=== PATIENT | male | born 1970 | race Caucasian/White ===

== ENCOUNTER → 2017-05-31 | Outpatient (CLI) | payer MEDICAID ==
[2017-05-31 07:49] LABS: Appearance,Urine Clear (Clear); Bilirubin,Urine Negative (Negative); Blood,Urine Negative (Negative); Color,Urine Light Yellow; Glucose,Urine (UA) Negative (Negative); Ketones,Urine Negative (Negative); Leukocyte Esterase,Urine Negative (Negative); Nitrite,Urine Negative (Negative); Protein,Urine Negative (Negative); Specific Gravity,Urine 1.013 (1.001-1.035); Urobilinogen,Urine <2.0 mg/dL (<2.0)
[2017-05-31 07:50] LABS: HCT 46.4 % (39.0-53.0); HGB 15.9 gm/dL (13.0-17.5); MCH 29.6 pg (25.0-35.0); MCHC 34.3 g/dL (31.0-37.0); MCV 86.3 fL (80.0-100.0); Mean Platelet Volume 7.7; Platelet Count 225 k/uL (150-450); RBC 5.38 m/uL (4.30-5.90); RDW 12.7 % (11.5-15.5); WBC 5.1 k/uL (3.8-10.6)
[2017-05-31 08:01] LABS: Albumin 4.4 g/dL (3.5-5.0); Calcium 9.7 mg/dL (8.4-10.2); Potassium 5.2 mmol/L (3.5-5.1); Total Bilirubin 1.3 mg/dL (0.2-1.3); Total Protein 7.3 g/dL (6.3-8.2)
[2017-05-31 08:15] LABS: T4, Free (Free Thyroxine) 0.79 ng/dL (0.78-2.19)
[2017-05-31 13:11] LABS: Hemoglobin A1C 5.6 % (4.0-6.0)
== END | disposition home or self-care (01) ==
LOC: LABWHC1 06:58
PROVIDERS: ATTEND Family Medicine
DX: Z00.00 Encounter for general adult medical examination without abnormal findings (principal)
CPT/HCPCS: 36415; 80053; 80061; 81003; 83036; 84439; 84443; 85027

== ENCOUNTER → 2017-07-16 | Outpatient (CLI) | payer MEDICAID ==
--- NOTE | 2017-07-16 21:33 | MR ---
EXAMINATION TYPE: MR shoulder LT wo con DATE OF EXAM: 07/16/2017 COMPARISON: NONE HISTORY: Pain in left shoulder / Impingement TECHNIQUE: Multiplanar, multisequence imaging of the left shoulder is performed without contrast. FINDINGS: Rotator Cuff: There is partial full-thickness tear of the rotator cuff present in the anterior portio n of the insertion and also a rim rent tear is thought to extend into the substance of the tendon, th e tendon shows abnormal fluid signal and thickening Acromioclavicular Joint: Hypertrophic change of the acromioclavicular joint causes some mass effect o n the musculotendinous junction of supraspinatus, there is fluid signal subacromial subdeltoid bursa, distal acromial spur Glenohumeral Joint: Intact Labrum: Maintained, no evident tear Biceps Tendon: The long head of biceps is in normal location within bicipital groove. Bone marrow signal: No focal abnormal marrow signal is appreciated. Other: No additional significant abnormality is appreciated. IMPRESSION: Partial full-thickness tear the rotator cuff as described, correlate for impingement.
== END | disposition home or self-care (01) ==
LOC: RADMRIMAIN 06:35
PROVIDERS: ATTEND Orthopaedic Surgery Sports Medicine
DX: M75.122 Complete rotator cuff tear or rupture of left shoulder, not specified as traumatic (principal)

== ENCOUNTER → 2017-07-30 | Outpatient (CLI) | payer MEDICAID ==
[2017-07-30 11:58] LABS: HCT 47.1 % (39.0-53.0); HGB 15.9 gm/dL (13.0-17.5); MCH 30.2 pg (25.0-35.0); MCHC 33.8 g/dL (31.0-37.0); MCV 89.2 fL (80.0-100.0); Mean Platelet Volume 7.8; Platelet Count 217 k/uL (150-450); RBC 5.28 m/uL (4.30-5.90); RDW 13.3 % (11.5-15.5); WBC 4.2 k/uL (3.8-10.6)
[2017-07-30 12:04] LABS: Anion Gap 13 mmol/L; Blood Urea Nitrogen 19 mg/dL (9-20); Calcium 9.8 mg/dL (8.4-10.2); Carbon Dioxide 29 mmol/L (22-30); Chloride 104 mmol/L (98-107); Glucose 119 mg/dL (74-99); Potassium 4.8 mmol/L (3.5-5.1); Sodium 146 mmol/L (137-145)
[2017-07-30 12:10] LABS: Partial Thromboplastin Time 23.4 sec (22.0-30.0); Prothrombin Time 10.1 sec (9.0-12.0)
[2017-07-30 15:47] LABS: Appearance,Urine Clear (Clear); Bilirubin,Urine Negative (Negative); Blood,Urine Negative (Negative); Color,Urine Yellow; Glucose,Urine (UA) Negative (Negative); Ketones,Urine Negative (Negative); Leukocyte Esterase,Urine Negative (Negative); Nitrite,Urine Negative (Negative); Protein,Urine Negative (Negative); Specific Gravity,Urine 1.018 (1.001-1.035); Urobilinogen,Urine <2.0 mg/dL (<2.0)
== END | disposition home or self-care (01) ==
LOC: LABWHC1 11:17
PROVIDERS: ATTEND Family Medicine
DX: Z01.812 Encounter for preprocedural laboratory examination (principal)
CPT/HCPCS: 36415; 80048; 81003; 85027; 85610; 85730

== ENCOUNTER 2017-08-08 13:07 | Day surgery (SDC) | payer MEDICAID ==
[2017-08-05 12:34] VITALS: BMI 27.0
[~2017-08-08 13:07] MED LIST: ACETAMINOPHEN TAB 500 MG TAB PO ONE; DEXAMETHASONE SOD PHOSPHATE 10 MG/ML 1 ML VIAL IV ONE; LACTATED RINGERS 1,000 ML IV SCH; MIDAZOLAM 2 MG/2 ML VIAL IV PRN; MORPHINE SULFATE 4 MG/ML SYRINGE IV PRN; ONDANSETRON 4 MG/2 ML VIAL IVP ONE; ceFAZolin IN SWFI 2 GM/20 ML SYRINGE IVP ONE
[2017-08-08] MEDS ORDERED: LIDOCAINE 1% 20 ML VIAL (10MG/ML) FOR IV START INTRADERMA ONE (13:26)
[2017-08-08] MEDS ORDERED: fentaNYL (PF) 50 MCG/ML 2 ML AMP ONE (14:13)
[2017-08-08] MEDS ORDERED: SUCCINYLCHOLINE CHLORIDE 100 MG/5 ML SYR IV ONE (14:13)
[2017-08-08] MEDS ORDERED: MIDAZOLAM 2 MG/2 ML VIAL ONE (14:13)
[2017-08-08] MEDS ORDERED: PROPOFOL 10 MG/ML 20 ML VIAL IV ONE (14:13)
[2017-08-08] MEDS ORDERED: LACTATED RINGERS 1,000 ML IV ONE (15:16)
[2017-08-08 15:41] VITALS: TEMP 96.8
[2017-08-08] MEDS: HYDROmorphone 0.5 MG/0.5 ML SYRINGE IVP PRN ×3 (16:03→16:22)
--- NOTE | 2017-08-08 16:18 | OP ---
OPERATIVE REPORT DATE OF PROCEDURE: 08/08/2017 SURGEON: Vladimir Lazo M.D. STEEL CUTTER: Jamal VIEYRA. PREOPERATIVE DIAGNOSES: 1. Left shoulder rotator cuff tear. 2. Left shoulder superior labral tear. 3. Left shoulder subacromial impingement. POSTOPERATIVE DIAGNOSES: 1. Left shoulder type 2 displaced superior labral tear. 2. Left shoulder bicipital tenosynovitis. 3. Left shoulder type 2 anterolateral acromial spur. PROCEDURE PERFORMED: 1. Left shoulder arthroscopic biceps tenotomy. 2. Left shoulder anterior superior posterior labral debridement. 3. Left shoulder arthroscopic acromioplasty. ANESTHESIA: General endotracheal. ESTIMATED BLOOD LOSS: Minimal. TOURNIQUET: None. DRAINS: None. COMPLICATIONS: None apparent. DISPOSITION: Postanesthesia care unit. EXAMINATION: Examination under anesthesia, left shoulder elevation 160 degrees, external rotation at the side 45 degrees external rotation 90 degrees abduction was to 95 degrees, internal rotation at 90 degrees abduction was 60 degrees, sulcus less than 1 cm, anterior translation glenoid face, posterior translation glenoid face. ARTHROSCOPIC FINDINGS: Left shoulder: 1. Superior labrum type 2 superior labral tear tearing both anterior and posterior to biceps anchor. The biceps anchor was not intact. There is also partial tearing of the extensive tenosynovitis of the intra-articular portion of long head of the biceps tendon. 2. Anterior inferior labrum normal glenoid labral attachment posterior labrum. 3. Tearing of the posterior labrum from the 9 o'clock position up to the 12 o'clock position on the glenoid face. 4. Humeral head cartilage normal. 5. Rotator cuff: Normal subscapularis, supraspinatus and infraspinatus. 6. Glenoid face cartilage is normal. 7. Subacromial space significant fraying of the undersurface of the coracoacromial ligament with type 2 anterolateral acromial spur. INDICATIONS: Mustapha is a 47-year-old male with longstanding left shoulder pain. He has noted to have weakness as well as significant pain in the shoulder. He has been through fairly significant course of nonoperative treatment up to this point. Physical examination and MRI are suggestive of superior labral tear, bicipital tenosynovitis as well as rotator cuff tear. At this point time, he feels as if he has failed nonoperative treatment. I would like to proceed with operative intervention. Long discussion was held with the patient with regard to treatment options. The risks of procedure were all discussed with him in detail. These risks include, but not limited to risk of infection, nerve damage, bleeding, pain, and a small risk of deep vein thrombosis which could lead to fatal pulmonary emboli. Further risks include lack of healing of the rotator cuff and possibility for biceps contour change with a biceps tenotomy. The patient understands the operation as well as the fact that there is no guarantee of improvement of his symptoms. Appropriate informed consent was obtained. DESCRIPTION OF PROCEDURE: The patient was identified in preop holding area. Surgical sites marked by both the patient and myself. He was given 2 g of Ancef IV for prophylactic purposes. He was then transferred to the operative suite, where he was placed supine on the operative table. The patient was then intubated endotracheally and received general anesthesia throughout the operative procedure. Examination under anesthesia was then performed and the findings were noted above. The patient is then placed into the beach chair position well-padded in preparation for surgery. Great care was also taken to ensure that the cervical spine was in neutral alignment well-padded and maintained that way throughout the operative procedure. Great care was also taken to ensure that his legs were appropriately padded as well. The patient's left upper extremity was then prepped and draped in usual sterile fashion. Standard surgical pause undertaken to ensure that appropriate preop antibiotics were given and that we were operating the correct site. All staff in room were in agreement and we proceeded. The acromion as well as the AC joint coracoid marked with a surgical pen. The skin of the anticipated port sites were also marked with a surgical pen. The skin of the anticipated port sites were then injected with 0.25% Marcaine with epinephrine. I then proceeded to make a posterior portal. A 30 degree arthroscope was introduced in the glenohumeral joint through this portal. The arthroscopic pump pressure was set at 44 mmHg and maintained at that level throughout the entire case. Next utilizing an 18-gauge spinal needle topical localized placement, the anterior superior portal was made. This was made just underneath the biceps tendon high in the rotator interval. A small 5.75 mm cannula was then placed and the outflow was then done through this cannula. Diagnostic arthroscopy of the shoulder was then performed. The findings noted above. Great care was taken to probe superior labral complex as well as the biceps anchor. The biceps anchor was not firmly attached. Significant tearing of the superior labrum. This extended both anterior and posterior to the biceps anchor. The intra-articular portion of long head of the biceps tendon did show extensive tenosynovitis as well. At this point, I proceeded with a biceps tenotomy. The biceps was tenotomized at its attachment on the supraglenoid tubercle. This was done utilizing the ArthroCare wand. I then proceeded to debride the torn loose tissue of the superior labrum. This was debrided anteriorly, superiorly, posteriorly, back to stable tissue. I then inspected the rotator cuff from intra-articular. The subscapularis was pristine without any evidence of tearing. The supraspinatus and infraspinatus also showed no evidence of tearing. At this point in time, no further work was deemed necessary from intra-articular. The arthroscope was removed from the glenohumeral joint and utilizing the same posterior skin incision was placed into the subacromial space. Next utilizing an 18-gauge spinal needle to topically localize placement, lateral portal was made under direct visualization. Subacromial bursectomy was then performed utilizing synovial shaver as well as the ArthroCare wand. There was fraying of the undersurface of the coracoacromial ligament. This was then taken down utilizing the ArthroCare wand. This exposed underlying type 2 anterolateral acromial spur. I then proceed with an acromioplasty. Utilizing synovial shaver in a vero-type fashion, the acromioplasty was completed. When the acromioplasty was complete, the arthroscope was placed in the lateral portal and the shaver placed posteriorly to ensure that it was adequate and coplanar with posterior aspect of the acromion. I then placed the arthroscope into the lateral portal. I made a 4th anterolateral portal after first localizing with an 18-gauge spinal needle. This was done to be able to probe the rotator cuff. With the arthroscope in the lateral portal, and taking the shoulder throughout a full range of motion. I was able to thoroughly inspect the bursal surface of the rotator cuff. There was no evidence of tearing at all on the bursal surface of the rotator cuff. In fact, the rotator cuff looked quite pristine with very healthy-looking blood vessels running through its bursal surface. The anterior area of the cuff was probed. It seemed very robust in this area. This was the area that there was concern about on the MRI. Again, there was no evidence of a high-grade partial-thickness tear or even low-grade partial thickness tear in this area. Certainly there was no evidence of a full-thickness tear in this area. At this point, I made a decision not to proceed with any sort of attempted repair of the rotator cuff. The shoulder was then thoroughly irrigated and then drained with an outflow cannula. The arthroscopic equipment was removed from the shoulder. The arthroscopic portals were then closed with 3-0 nylon interrupted suture. Sterile compressive dressings were applied. The patient's left upper extremity was placed in a standard sling. All sponge and needle counts were deemed correct prior to closure. The patient tolerated the procedure well without apparent complication. He was transferred to the recovery room in stable condition. ANTONIETTA / DANIELLE: [id number] /
[2017-08-08] MEDS: MORPHINE SULFATE 4 MG/ML SYRINGE IVP ONE ×2 (16:33→16:40)
[2017-08-08 16:50] VITALS: RESP 18
[2017-08-08] MEDS ORDERED: HYDROcodone/APAP 7.5-325MG 1 EACH TAB PO ONE (17:12)
[2017-08-08 17:38] VITALS: BP 122/85; PULSE 73
--- NOTE | 2017-08-08 19:45 | P.ONQ ---
Anesthesiology Proc Note - PNB - Peripheral Nerve Block Performed Left Interscalene Single Time Out Performed: Yes Procedure Start Time: 13:53 Procedure Stop Time: 13:56 Indication: Acute Post-Operative Pain, Requested by physician Sedation Type: Sedate with meaningful contact maintained Preparation: Sterile Prep Position: Supine Needle Size: 50mm (2") Needle Gauge: 21 Technique: Ultrasound Injectate: 0.5% Ropivacaine (see comment for volume) (ropi .5% 30cc) Blood Aspirated: No Pain Paresthesia on Injection Noted: No Resistance on Injection: Normal Events: Uneventful and Well Tolerated
== END 2017-08-08 18:05 | disposition home or self-care (01) ==
LOC: OR 13:07
PROVIDERS: ATTEND Orthopaedic Surgery Sports Medicine
DX: S43.492A Other sprain of left shoulder joint, initial encounter (principal); S43.432A Superior glenoid labrum lesion of left shoulder, initial encounter; X58.XXXA Exposure to other specified factors, initial encounter; M75.22 Bicipital tendinitis, left shoulder; M25.712 Osteophyte, left shoulder; E03.9 Hypothyroidism, unspecified; G47.30 Sleep apnea, unspecified; E04.1 Nontoxic single thyroid nodule; Z79.1 Long term (current) use of non-steroidal anti-inflammatories (NSAID); Z88.8 Allergy status to other drugs, medicaments and biological substances
CPT/HCPCS: 64415; 29822; 29826; J2250; J2270; J1100; J2405; J3010; J0330; J2704; J1170; J0690

== ENCOUNTER → 2019-03-20 | Outpatient (CLI) | payer MEDICAID ==
[2019-03-20 11:20] LABS: HCT 49.8 % (39.0-53.0); HGB 16.5 gm/dL (13.0-17.5); MCH 30.1 pg (25.0-35.0); MCHC 33.2 g/dL (31.0-37.0); MCV 90.5 fL (80.0-100.0); Mean Platelet Volume 8.5; Platelet Count 214 k/uL (150-450); RDW 13.1 % (11.5-15.5); WBC 5.5 k/uL (3.8-10.6)
[2019-03-20 11:46] LABS: Appearance,Urine Clear (Clear); Bilirubin,Urine Negative (Negative); Blood,Urine Negative (Negative); Color,Urine Yellow; Glucose,Urine (UA) Negative (Negative); Ketones,Urine Negative (Negative); Leukocyte Esterase,Urine Negative (Negative); Nitrite,Urine Negative (Negative); Protein,Urine Negative (Negative); Specific Gravity,Urine 1.024 (1.001-1.035); Urobilinogen,Urine <2.0 mg/dL (<2.0)
[2019-03-20 18:11] LABS: Hemoglobin A1C 5.9 % (4.0-6.0)
[2019-03-20 18:45] LABS: African American GFR (CKD) 80.7 (60.0-200.0); Albumin 4.7 g/dL (3.80-4.90); Albumin/Globulin Ratio 2.14 (1.60-3.17); Anion Gap 9.1 mmol/L (4.00-12.00); BUN/Creat Ratio 19.17 Ratio (12.00-20.00); Calcium 9.6 mg/dL (8.7-10.3); Carbon Dioxide 25.9 mmol/L (21.6-31.8); Chol/HDL Ratio 4.59; Globulin 2.2 g/dL (1.6-3.3); LDL Cholesterol,Calculated 135.6 mg/dL (0.0-131.0); Non-African American GFR(CKD) 69.6 (60.0-200.0); Potassium 4.7 mmol/L (3.5-5.5); Total Bilirubin 1.2 mg/dL (0.3-1.2); Total Protein 6.9 g/dL (6.2-8.2); VLDL Calculation 11.4 mg/dL (5.00-40.00)
[2019-03-20 18:52] LABS: T4, Free (Free Thyroxine) 1.3 ng/dL (0.80-1.80)
== END ==
LOC: LABWHC1 10:41
PROVIDERS: ATTEND Family Medicine
DX: Z00.00 Encounter for general adult medical examination without abnormal findings (principal); D34 Benign neoplasm of thyroid gland
CPT/HCPCS: 36415; 80053; 80061; 81003; 83036; 84153; 84439; 84443; 85027

== ENCOUNTER → 2021-10-20 | Outpatient (CLI) | payer MEDICAID ==
[2021-10-20 11:33] LABS: HCT 45.9 % (39.6-50.0); HGB 14.9 g/dL (13.0-17.0); MCH 29.9 pg (27.0-32.0); MCHC 32.5 g/dL (32.0-37.0); MCV 92.2 fL (80.0-97.0); Mean Platelet Volume 11.6 fL (9.5-12.2); NRBC Per 100 WBC 0 /100 WBCS (0.0-0.0); Platelet Count 223 X 10*3/uL (140-440); RBC 4.98 X 10*6/uL (4.40-5.60); RDW 13.6 % (11.5-14.5)
[2021-10-20 11:46] LABS: ALT 23 U/L (10-49); AST 30 U/L (14-35); African American GFR (CKD) 88.4 (60.0-200.0); Albumin 4.5 g/dL (3.8-4.9); Albumin/Globulin Ratio 1.67 (1.60-3.17); Alkaline Phosphatase 48 U/L (41-126); BUN/Creat Ratio 17.09 Ratio (12.00-20.00); Blood Urea Nitrogen 18.8 mg/dL (9.0-27.0); Calcium 9.4 mg/dL (8.7-10.3); Carbon Dioxide 25.2 mmol/L (20.0-27.5); Chloride 103 mmol/L (96-109); Chol/HDL Ratio 4.26 Ratio; Globulin 2.7 g/dL (1.6-3.3); Glucose 116 mg/dL (70-110); LDL Cholesterol,Calculated 121.9 mg/dL (0.0-131.0); Non-African American GFR(CKD) 76.2 (60.0-200.0); Potassium 4.8 mmol/L (3.5-5.5); Sodium 139 mmol/L (135-145); Total Protein 7.2 g/dL (6.2-8.2)
[2021-10-20 18:32] LABS: Appearance,Urine Clear (Clear); Bilirubin,Urine Negative (Negative); Blood,Urine Negative (Negative); Color,Urine Yellow (Yellow); Ketones,Urine Negative (Negative); Nitrite,Urine Negative (Negative); Specific Gravity,Urine 1.017 (1.001-1.030); Urobilinogen,Urine 0.2 (0.2,1.0)
== END | disposition home or self-care (01) ==
LOC: LABWHC1 08:12
PROVIDERS: ATTEND Family Medicine
DX: Z00.00 Encounter for general adult medical examination without abnormal findings (principal); D34 Benign neoplasm of thyroid gland; R53.83 Other fatigue
CPT/HCPCS: 36415; 80053; 80061; 81003; 82306; 82607; 84153; 84402; 84403; 84439; 84443; 85027

== ENCOUNTER → 2023-01-11 | Outpatient (CLI) | payer MEDICAID ==
[2023-01-11 10:56] LABS: HCT 49.1 % (39.6-50.0); HGB 16.1 g/dL (13.0-17.0); MCH 29.8 pg (27.0-32.0); MCHC 32.8 g/dL (32.0-37.0); MCV 90.8 FL (80.0-97.0); Mean Platelet Volume 11.7 FL (9.5-12.2); NRBC Per 100 WBC 0 X 10*3/uL (0.00-0.01); Platelet Count 186 X 10*3/uL (140-440); RBC 5.41 X 10*6/uL (4.40-5.60); RDW 13.6 % (11.5-14.5); WBC 5.21 X 10*3/uL (4.50-10.00)
[2023-01-11 15:54] LABS: Appearance,Urine Clear (Clear); Bilirubin,Urine Negative (Negative); Blood,Urine Negative (Negative); Color,Urine Yellow (Yellow); Ketones,Urine Negative (Negative); Nitrite,Urine Negative (Negative); PH, Urine 6.5; Specific Gravity,Urine 1.014 (1.001-1.030); Urobilinogen,Urine 0.2 E.U./DL
[2023-01-11 16:21] LABS: Chol/HDL Ratio 5.38 Ratio
[2023-01-11 16:22] LABS: ALT 53 U/L (10-49); AST 30 U/L (14-35); Albumin 4.6 g/dL (3.8-4.9); Albumin/Globulin Ratio 1.84 Ratio (1.60-3.17); Alkaline Phosphatase 54 U/L (41-126); BUN/Creat Ratio 20.27 Ratio (12.00-20.00); Blood Urea Nitrogen 22.3 mg/dL (9.0-27.0); Calcium 9.9 mg/dL (8.7-10.3); Carbon Dioxide 26.4 mmol/L (21.6-31.8); Chloride 105 mmol/L (96-109); Globulin 2.5 g/dL (1.6-3.3); Glucose 109 mg/dL (70-110); Potassium 4.6 mmol/L (3.5-5.5); Sodium 142 mmol/L (135-145); T4, Free (Free Thyroxine) 1.09 ng/dL (0.80-1.80); Total Bilirubin 0.5 mg/dL (0.3-1.2); Total Protein 7.1 g/dL (6.2-8.2)
== END | disposition home or self-care (01) ==
LOC: LABWHC1 06:59
PROVIDERS: ATTEND Family Medicine
DX: Z00.00 Encounter for general adult medical examination without abnormal findings (principal); D34 Benign neoplasm of thyroid gland; R53.83 Other fatigue
CPT/HCPCS: 36415; 80053; 80061; 81003; 82306; 82607; 84153; 84402; 84403; 84439; 84443; 85027

== ENCOUNTER → 2024-05-19 | Outpatient (CLI) | payer MEDICAID ==
[2024-05-19 10:18] LABS: Appearance,Urine Clear (Clear); Bilirubin,Urine Negative (Negative); Blood,Urine Negative (Negative); Color,Urine Yellow (Yellow); Ketones,Urine 15 (Negative); Nitrite,Urine Negative (Negative); Specific Gravity,Urine 1.012 (1.001-1.030); Urobilinogen,Urine 0.2 E.U./DL
[2024-05-19 10:19] LABS: HCT 51.1 % (39.6-50.0); HGB 16.6 g/dL (13.0-17.0); MCH 29.7 pg (27.0-32.0); MCHC 32.5 g/dL (32.0-37.0); MCV 91.4 FL (80.0-97.0); Mean Platelet Volume 12.3 FL (9.5-12.2); NRBC Per 100 WBC 0 X 10*3/uL (0.00-0.01); Platelet Count 166 X 10*3/uL (140-440); RBC 5.59 X 10*6/uL (4.40-5.60); RDW 13.3 % (11.5-14.5)
[2024-05-19 10:49] LABS: ALT 46 U/L (10-49); AST 37 U/L (14-35); Albumin 4.6 g/dL (3.8-4.9); Albumin/Globulin Ratio 1.59 Ratio (1.60-3.17); Alkaline Phosphatase 60 U/L (41-126); Calcium 9.7 mg/dL (8.7-10.3); Carbon Dioxide 26.2 mmol/L (21.6-31.8); Chloride 105 mmol/L (96-109); Chol/HDL Ratio 6.23 Ratio; Globulin 2.9 g/dL (1.6-3.3); Glucose 121 mg/dL (70-110); LDL Cholesterol,Calculated 122.5 mg/dL (0.0-131.0); Potassium 4.3 mmol/L (3.5-5.5); Sodium 141 mmol/L (135-145); T4, Free (Free Thyroxine) 1.13 ng/dL (0.80-1.80); Total Bilirubin 0.4 mg/dL (0.3-1.2); Total Protein 7.5 g/dL (6.2-8.2)
[2024-05-19 10:50] LABS: Prostate Specific Antigen 0.54 ng/mL (0.000-3.500)
== END | disposition home or self-care (01) ==
LOC: LABWHC1 07:19
PROVIDERS: ATTEND Family Medicine
DX: Z00.00 Encounter for general adult medical examination without abnormal findings (principal); D34 Benign neoplasm of thyroid gland
CPT/HCPCS: 36415; 80053; 80061; 81003; 82306; 83036; 84153; 84439; 84443; 85027

== ENCOUNTER → 2024-08-27 | Outpatient (CLI) | payer MEDICAID ==
[2024-08-27 13:09] VITALS: BP 139/89; PULSE 80; RESP 16; TEMP 97.9
--- NOTE | 2024-08-27 13:33 | P.SLEEP ---
History of Present Illness DATE: 08/27/2024 CONSULTATION/NEW PATIENT EVALUATION HISTORY OF PRESENT ILLNESS/SLEEP-WAKE EVALUATION: 54-year-old gentleman had be en evaluated in the sleep center for possible obstructive sleep apnea hypopnea syndrome. Patient has history of obstructive sleep apnea diagnosed many years ago in another institution. He had UPPP and sleep study after that again showed sleep apnea. Patient was on treatment with CPAP but stopped therapy about 6 years ago. SLEEP SCHEDULE: Usually sleep schedule from 10 PM to 6:30 AM on weekdays and until 8 AM on weekend. FALLING ASLEEP: No problems with falling asleep. DURING SLEEP: Patient usually sleeps on the back and side position slightly up and wakes up from sleep up to 3 times with up to 2 episodes of nocturia. No history of hypnogogical hallucinations, sleep paralysis, or cataplexy. DURING THE DAY/WAKE STATE: In the morning patient wake up tired, has difficulties to pay attention. [place] sleepiness scale is 7. Patient does not take naps. PAST MEDICAL HISTORY: Sinus problems, left shoulder problems. PAST SURGICAL HISTORY: UPPP, tonsillectomy adenoidectomy, left shoulder surgery. MEDICATIONS: None. SOCIAL HISTORY: Please see below. FAMILY HISTORY: Please see below. REVIEW OF SYSTEMS: Snoring, multiple awakenings from sleep. No fevers. No double vision. No recent chest pain. No shortness of breath. No abdominal pain. No bleeding episodes. No blood in urine. No seizure episodes. PHYSICAL EXAMINATION: GENERAL: A pleasant patient without any distress. VITAL SIGNS: Please see below, weight 209 pounds, BMI 28.3. HEENT: PERRLA, EOMI. Evaluation of oropharynx showed tongue protrudes midline, status post UPPP, no uvula. NECK: Supple. No JVD. Thyroid is not palpable. 16-1/4 inches in circumference. LUNGS: Clear to percussion and to auscultation. Good air exchange. No wheezing or rhonchi. HEART: S1, S2 regular. No murmurs, gallops or rubs. ABDOMEN: Soft and nontender. Bowel sounds are present. No organomegaly appreciated. EXTREMITIES: No clubbing or cyanosis. SMELTING ENGINEER: Awake, alert, and oriented x3. Cranial nerves 2 to 7 intact. There is no fasciculation or atrophy noted. No focal deficits observed. ASSESSMENT: 1. Loud snoring, multiple awakenings from sleep, history of obstructive sleep apnea. Obstructive sleep apnea hypopnea syndrome. 2. Status post UPPP. 3. Status post tonsillectomy and adenoidectomy. 4. Status post left shoulder surgery. 5 history of sinusitis. PLAN: 1. Home sleep apnea test for evaluation of patient's breathing during sleep. 2. Following plan after reading sleep study. 3. Preferable position during sleep on the side. 4. No driving if patient feels any sleepiness. Patient is aware of civil and criminal liability for unsafe driving. 5. Sleep hygiene with regular sleep time for at least 7.5-8 hours. 6. Watching weight. Thank you very much for referring this patient for consultation. Sincerely, Artemio Johns MD, PhD, FAASM. Diplomat of [employer], Sleep Medicine Board by [employer] Facilities Maintenance Engineer of [facility] [place] cc: Aydin Dunbar DO Past Medical History Past Medical History: Sleep Apnea/CPAP/BIPAP, Thyroid Disorder History of Any Multi-Drug Resistant Organisms: None Reported Past Surgical History: Adenoidectomy, Tonsillectomy Additional Past Surgical History / Comment(s): UPPP, uvulopalatalpharygeoplasty, thyroid biopsy Past Anesthesia/Blood Transfusion Reactions: No Reported Reaction Past Psychological History: No Psychological Hx Reported Smoking Status: Never smoker Past Alcohol Use History: None Reported, Occasional Past Drug Use History: None Reported - Past Family History Mother Family Medical History: Cancer Father Family Medical History: Coronary Artery Disease (CAD), Diabetes Mellitus, Hyperlipidemia, Thyroid Disorder Medications and Allergies Home Medications Medication Instructions Recorded Confirmed Type Ibuprofen 400 mg PO BID 08/05/17 08/05/17 History Acetaminophen/Diphenhydramine 1 tab PO ONETIME PRN 08/08/17 08/08/17 History [Tylenol PM Extra Strength] Docusate [Colace] 100 mg PO BID #60 capsule 08/08/17 Rx Doxycycline Hyclate 100 mg PO BID #10 tab 08/08/17 Rx HYDROcodone/APAP 7.5-325MG [Presto 1 - 2 tab PO Q6HR PRN #60 tab 08/08/17 Rx 7.5-325] Allergies Allergy/AdvReac Type Severity Reaction Status Date / Time No Known Allergies Allergy Verified 08/05/17 12:34 Physical Exam Vitals: Vital Signs Temp Pulse Resp BP Pulse Ox 08/27/24 13:09 97.9 F 80 16 139/89 96 Intake and Output 08/26/24 08/27/24 08/27/24 22:59 06:59 14:59 Other: Weight 94.801 kg Sleep Note - Sleep Data ESS Total: 7 - Sleep Note Sleep Note: Temperature: 97.9 F Pulse Rate: 80 Respiratory Rate: 16 Blood Pressure: 139/89 SpO2: 96 Height: 6 ft Weight: 94.801 kg BMI: Neck Circumference: 16.2
== END ==
LOC: 3 N SLEEP 13:04
PROVIDERS: ATTEND Internal Medicine
DX: G47.33 Obstructive sleep apnea (adult) (pediatric) (principal); Z98.890 Other specified postprocedural states; Z90.89 Acquired absence of other organs; Z87.09 Personal history of other diseases of the respiratory system
CPT/HCPCS: 99211

== ENCOUNTER → 2024-09-04 | Outpatient (CLI) | payer MEDICAID ==
--- NOTE | 2024-09-16 12:30 | P.PCN ---
Description of Procedure: CLINICAL: A home sleep apnea test has been done for confirmation of possible obstructive sleep apnea-hypopnea syndrome. DESCRIPTION OF PROCEDURE: RESULTS: Recording time was 8 hours 22 minutes. Evaluation time was 8 hours 10 minutes. Evaluation time is sufficient for making conclusion about results of the test. Raw data of sleep recording has been reviewed and is adequate. Respiratory channel showed 504 apneas and 66 hypopneas. Apnea-hypopnea index was 69.7 per hour, which included obstructive apnea index 36.1, central apnea index 16.6, mixed apnea index 8.9. Pulse rate in the range between minimum 56, maximum 113, average 73 by computer calculation. Lowest desaturation was 71%. IMPRESSION: 1. Extremely severe obstructive and central sleep apnea hypopnea syndrome. Please see other impressions from consultation. PLAN: 1. The patient should have PAP titration for correction of respiratory abnormallities during sleep. 2. Following plan after reading PAP titration. 3. Watching weight. 4. Sleep hygiene with regular time in bed for at least 8 hours. 5. No driving if feeling any sleepiness. Thank you very much for allowing me to participate in the management of your patient. Sincerely, Artemio Johns MD, PhD, FAASM Diplomat of [employer] Sleep Medicine Board of [employer] Rail Car Painter/Sandblaster of [facility] [place] cc: Aydin Dunbar DO
== END ==
LOC: 3 N SLEEP 13:00
PROVIDERS: ATTEND Internal Medicine
DX: G47.33 Obstructive sleep apnea (adult) (pediatric) (principal)

== ENCOUNTER 2024-09-24 19:16 | Outpatient (CLI) | payer MEDICAID ==
--- NOTE | 2024-09-25 18:30 | P.PCN ---
Description of Procedure: CLINICAL: Titration with positive air pressure has been done for correction of respiratory abnormalities during sleep. DESCRIPTION OF PROCEDURE: The standard montage for clinical polysomnography included the electroencephalogram, the electrocardiogram, the mentalis surface electromyography and Lead II cardiography. The respiratory battery consisted of measurements of nasal /buccal air flow, pressure transducer measurements from the nose, thoracic and /or abdominal effort and intercostal surface electromyography. Video monitoring has been done to check for any parasomnia events. Nocturnal oxyhemoglobin saturations were obtained by finger oximetry. Step-conteh titration with positive airway pressure was utilized to control respiratory events. Raw data of sleep recording has been reviewed and is adequate. RESULTS: Sleep efficiency was close to normal 86.2%. Latency to sleep onset was significantly prolonged to 50.0 minutes.]. Sleep architecture showed stage N1 was normal 6.2%, Delta sleep was absent 0%, REM sleep was slightly short 16.6%. Heart rate was minimum 70 BPM, maximum 81 BPM, average 75 BPM. EMG showed 0 periodic limb movements per hour. PAP titration have been done with CPAP up to the pressure 15 cm H2O. Patient had problems with CPAP, switched to BPAP. BPAP titrated up to 23/19 cm H2O. The best results were at the pressure 21/17 cm H2O. Apnea hypopnea index reduced to 1.7.. IMPRESSION: 1. Obstructive sleep apnea hypopnea syndrome mostly on controle with PAP treatment. 2. No significant periodic limb movements have been documented. Please see other impressions from consultation. PLAN: 1. The patient will have treatment with positive air pressure equipment with AutoBPAP with maximal inspiratory pressure 23 and minimal expiratory pressure 10 cm H2O and should use it every night for the whole night. 2. Watching weight. 3. Sleep hygiene with regular time in bed for at least 8 hours. 4. No driving if feeling any sleepiness. 5. I will see the patient for follow up visit to explain the results of the test, recommendations, check compliance with treatment and make any necessary adjustment related to mask fitting, pressure and humidification. Thank you very much for allowing me to participate in the management of your patient. Sincerely, Artemio Johns MD, PhD, FAASM Diplomat of [employer] Sleep Medicine Board of [employer] Security Rep [facility] [place] cc: Aydin Dunbar DO
== END 2024-09-25 05:10 | disposition home or self-care (01) ==
LOC: 3 N SLEEP 19:16
PROVIDERS: ATTEND Internal Medicine
DX: G47.33 Obstructive sleep apnea (adult) (pediatric) (principal); Z99.89 Dependence on other enabling machines and devices
CPT/HCPCS: 95811